=== PATIENT | male | born 1950 | race Caucasian/White ===

== ENCOUNTER → 2022-02-12 15:06 | Outpatient (BNVA) | payer MEDICARE, SELFPAY | PROVIDERS: PCP Family Medicine; Visit Provider Internal Medicine Cardiovascular Disease | DX: I25.10 Atherosclerotic heart disease of native coronary artery without angina pectoris (principal); E78.5 Hyperlipidemia, unspecified; E11.9 Type 2 diabetes mellitus without complications; I11.0 Hypertensive heart disease with heart failure; I50.9 Heart failure, unspecified; F17.200 Nicotine dependence, unspecified, uncomplicated | CPT/HCPCS: 99204 ==

== ENCOUNTER 2022-10-04 13:21 | Outpatient (CLI) | payer MEDICARE, SELFPAY ==
--- NOTE | 2022-10-04 | CT_ITS ---
WS: [id number] LDCT LUNG CANCER SCREENING TECHNIQUE: Noncontrast CT of the chest with coronal and sagittal reformatted images. CLINICAL INFORMATION: NICOTINE DEPENDENCE COMPARISON: None. DLP: 81.19 mGy.cm DIvol: Mean CTDIvol: 1.60 (mGy) All CT scans at [facility] use at least one of these dose optimization techniques: automat ed exposure control; mA and/or kV adjustment per patient size (includes targeted exams where dose is matched to clinical indication); or iterative reconstruction. FINDINGS: Aortic calcification. Coronary calcification. Sternotomy with CABG. Normal caliber thoracic aorta. No mediastinal or hilar lymphadenopathy. No axillary lymphadenopathy. Adrenal glands are normal. Solid ovoid left hilar mass measuring 2.3 x 2.7 cm suspicious for neoplasm. Recommend further evaluat ion with PET/CT and/or bronchoscopy. No anterior mediastinal lymphadenopathy. Several nonspecific scattered subcentimeter pulmonary nodules in the RIGHT upper lobe, and both lower lobes. Cluster of small nodules in the LEFT lower lobe laterally. Largest nodules measure approximat nicolas 3 to 4 mm. Clustered nodules in the LEFT lower lobe with the largest nodule measuring [address]/CT lung screening [id number] IMPRESSION: 2.3 x 2.7 cm ovoid soft tissue mass about the LEFT hilum suspicious for neoplasm. Recommend further evaluation with PET/CT and/or bronchoscopy. LUNG-RADS: 4B-Suspicious FOLLOW UP: See Report
== END 2022-10-04 13:22 | disposition home or self-care (01) ==
PROVIDERS: PCP Family Medicine; Visit Provider Family Medicine
DX: Z12.2 Encounter for screening for malignant neoplasm of respiratory organs (principal); F17.210 Nicotine dependence, cigarettes, uncomplicated
CPT/HCPCS: 71271

== ENCOUNTER 2022-10-26 06:02 | Outpatient (CLI) | payer MEDICARE, SELFPAY ==
--- NOTE | 2022-10-26 | PETR_ITS ---
PROCEDURE INFORMATION: Exam: PET/CT Skull Base to Mid-thigh Exam date and time: 10/26/2022 8:27 AM Age: 72 years old Clinical indication: Abnormal findings; 2.3 x 2.7 cm ovoid soft tissue mass about the left hilum suspicious for neoplasm. ; Additional info: Lung nodule left lung hilar area LABS AND CLINICAL REPORTS: Glucose: 159 mg/dl Treatment strategy for malignancy (PET staging): Initial Staging (PI) TECHNIQUE: Imaging protocol: Following at least four-hour fasting and following the injection of F-18-FDG, low dose CT images were obtained. Then, PET images were obtained. Attenuation corrected images were constructed using the CT scan. Fused images of PET and CT were reviewed. The standardized uptake values (SUV) reported below are maximum values within a region of interest, expressed in gm/ml. Exam includes orbital meatal line to mid-thigh. Radiopharmaceutical: 12.65 mCi F-18 FDG (Fluorodeoxyglucose), IV. Time of imaging post radiopharmaceutical administration: 1 hour Injection site: Right antecubital COMPARISON: CT lung screening [id number] 10/04/2022 1:46 PM FINDINGS: Brain: Visualized brain has normal physiologic uptake. Paranasal sinuses: Non radiotracer avid mild mucosal thickening in the sphenoid and ethmoid sinuses is noted likely related to benign chronic sinusitis. Pharynx: No abnormal uptake. Larynx: No abnormal uptake. Lungs, pleura and trachea: No abnormal uptake. A rounded left upper lobe/left perihilar soft tissue density nodule measuring 2.6 cm in diameter on series 3, image 66 is not radiotracer avid, SUV max 1.8. A small to moderate sized bulla in the medial left lower lobe is noted. Left upper lobe calcified granulomas are present. Heart: Normal physiologic uptake. Mediastinal space: No abnormal uptake. Liver: No abnormal uptake. Gallbladder and bile ducts: No abnormal uptake. There are stones in the gallbladder. Pancreas: No abnormal uptake. Spleen: No abnormal uptake. There are calcified granulomas in the spleen. Adrenal glands: No abnormal uptake. Kidneys and ureters: Normal physiologic uptake. An approximately 2 mm nonobstructing stone in the left renal inferior pole is present. Unremarkable right kidney. Stomach and bowel: No abnormal uptake. Reproductive: Prominence of the prostate gland is moderate, without elevated uptake. Vasculature: No abnormal uptake. There are diffuse atherosclerotic changes including within the coronary arteries. Aneurysmal dilatation of the infrarenal abdominal aorta is noted measuring 4.3 x 4.4 cm on series 3, image 120. Lymph nodes: No abnormal uptake. No lymphadenopathy in the head, neck, chest, abdomen, pelvis, and extremities. There are small calcified left hilar lymph nodes. Bones/joints: No abnormal uptake in the visualized axial and appendicular skeleton. Sternotomy wires are noted.There is mild diffuse vertebral body spondylosis. Moderate reversal of the cervical lordosis is noted. Soft tissues: No abnormal uptake in the visualized head, neck, chest, abdomen, pelvis, and extremities. METRICS: Mediastinal blood pool: SUV max 2.6 [facility] [id number] IMPRESSION: 1. A previously noted rounded soft tissue density nodule in the medial left upper lobe/left perihilar region is not radiotracer avid. While this favors a benign etiology, non-hypermetabolic malignancy cannot be entirely excluded. 2. Old granulomatous changes. 3. Cholelithiasis. 4. Infrarenal abdominal aortic aneurysm. 5. Additional nonurgent findings as detailed above.
== END 2022-10-26 06:03 | disposition home or self-care (01) ==
LOC: RAD 10-28 06:02
PROVIDERS: PCP Family Medicine; Visit Provider Family Medicine
DX: R91.8 Other nonspecific abnormal finding of lung field (principal); K80.20 Calculus of gallbladder without cholecystitis without obstruction; I71.43 Infrarenal abdominal aortic aneurysm, without rupture
CPT/HCPCS: 78815; A9552

== ENCOUNTER → 2022-12-17 11:39 | Outpatient (BNVA) | payer MEDICARE, SELFPAY | PROVIDERS: PCP Family Medicine; Visit Provider Internal Medicine Pulmonary Disease | DX: R91.8 Other nonspecific abnormal finding of lung field (principal); F17.210 Nicotine dependence, cigarettes, uncomplicated; R06.09 Other forms of dyspnea | CPT/HCPCS: 99204 ==

== ENCOUNTER 2024-04-14 13:07 | Outpatient (CLI) | payer MEDICARE, SELFPAY ==
--- NOTE | 2024-04-14 13:13 | CT_ITS ---
WS: [id number] CT chest wo con [id number] HISTORY: LUNG HILAR MASS TECHNIQUE: Axial imaging performed through the thorax. Coronal and sagittal reformats are submitted. All CT scans at [facility] use at least one of these dose optimization techniques: automated exposure control; mA and/or kV adjustment per patient size (includes targeted exams where dose is mat ched to clinical indication); or iterative reconstruction. CONTRAST: None DLP: 594.95 mGy.cm COMPARISON: 10/04/2022, PET/CT 10/26/2022 Lungs and central airway: Moderate pulmonary hyperexpansion. Mass previously described at the LEFT hi lum is reidentified measuring 2.6 x 2.6 cm. This mass was negative on PET/CT from 10/26/2022. Centrilo bular emphysema and interstitial thickening bilaterally. No pneumonia or mass. LEFT minor fissure nod ule. Pleura: Normal. No pleural effusion. Heart and pericardium: Normal size heart with no pericardial effusion. Mediastinum and christy: No mediastinum or hilar adenopathy. Vessels: Mild atherosclerosis aorta. Prior CABG. Normal size pulmonary artery. Chest wall and lower neck: Prior CABG. Upper abdomen: Small hiatal hernia. Mild hepatic steatosis. Splenic and hepatic granulomatous. No adr enal mass. The visualized pancreas is negative. Osseous structures: Mild increase in thoracic kyphosis. CT/CT chest wo con [id number] IMPRESSION: 1. LEFT hilar well-circumscribed nodule reidentified measuring 2.6 x 2.6 cm. T his mass was PET/CT negative. Not significantly changed in size since 10/04/2022 . Recommend continued imaging follow-up evaluation. Recommend chest CT with IV contrast if patient's renal function will permit. Follow-up in 6 months recomme nded. 2. No adenopathy. 3. Prior CABG.
== END 2024-04-14 13:08 | disposition home or self-care (01) ==
LOC: RAD 13:08
PROVIDERS: PCP Family Medicine; Visit Provider Family Medicine
DX: R91.8 Other nonspecific abnormal finding of lung field (principal); J98.4 Other disorders of lung; J43.2 Centrilobular emphysema; Z95.1 Presence of aortocoronary bypass graft; D73.89 Other diseases of spleen; K75.3 Granulomatous hepatitis, not elsewhere classified
CPT/HCPCS: 71250